=== PATIENT | female | born 2000 | race African-American/Black ===

== ENCOUNTER 2022-01-28 02:54 | Emergency (ER) | payer OTHER, SELFPAY ==
[2022-01-28] VITALS (71 sets, daily range): BP systolic 86–128; BP diastolic 52–83; PULSE 74–123; RESP 13–25; TEMP 36.9; O2SAT 99–100
--- NOTE | 2022-01-28 03:06 | ECG_ITS ---
Measurements Intervals [place] Rate: 93 P: 62 WV: 129 QRS: 71 QRSD: 78 T: 50 QT: 346 QTc: 432 Interpretive Statements SINUS RHYTHM NORMAL ECG NO PREVIOUS ECG AVAILABLE FOR COMPARISON Electronically Signed On 01-28-2022 14:27:36 [employer] by Milton Mendoza M.D.
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
--- NOTE | 2022-01-28 03:24 | PC.NURSE ---
Patient states i think that was it, that sounds familiar when asked if the medication was hydroxyzine. Request sent to patients pharmacy to obtain current prescription medication list.
--- NOTE | 2022-01-28 03:27 | PC.NURSE ---
Contacted poison control at this time, spoke with MANJU Hennessy. Minoo stated the patient is most likely sub-toxic and are past the peak effects at this time. She states that the drowsiness, tachycardia, dry mouth and nausea are to be expected with the vodka adding to the effects. Minoo states to monitor and to r/o alcohol, drug screen, tylenol and salicylates abnormalities. She states she will fax over information and call back later for update. Minoo states that if labs are normal, patient could be medically cleared by them.
--- NOTE | 2022-01-28 03:36 | PC.NURSE ---
Patient did attempt to provide urine sample, unsuccessful at this time. Will attempt again in a few minutes. Patients mother arrives at bedside.
[2022-01-28 03:39] LABS: Basophils Percent Auto 0.3 % (0.2-1.2); Eosinophils Absolute Auto 0.1 K/mm3 (0-0.3); Eosinophils Percent Auto 1.4 % (0-4.4); Hematocrit 37.4 % (37.0-47.0); Hemoglobin 12.6 g/dL (12.0-15.0); Immature Granulocyte Absolute 0.02 K/mm3 (0.00-0.031); Immature Granulocyte Percent A 0.3 % (0-0.5); Lymphocytes Percent Auto 49.4 % (18.3-44.2); Mean Corpuscular HGB Conc 33.7 g/dl (32-36); Mean Corpuscular Hemoglobin 29.1 pg (26-34); Mean Corpuscular Volume 86.4 fl (80-100); Mean Platelet Volume 10.6 fl (7.4-10.4); Monocytes Absolute Auto 0.5 K/mm3 (0.1-0.6); Monocytes Percent Auto 8.1 % (2.6-8.5); Neutrophils Absolute Auto 2.5 K/mm3 (1.3-6.7); Neutrophils Percent Auto 40.5 % (45.5-73.1); Platelet Count Result 168 k/mm3 (150-375); Red Blood Count 4.33 M/mm3 (4.2-5.4); Red Cell Distribution Width 13.2 % (11.5-14.5); White Blood Count 6.3 K/mm3 (4.5-10.0)
--- NOTE | 2022-01-28 03:39 | PC.NURSE ---
Patient ambulates to the bathroom with a steady gait to attempt to provide a urine sample. Attempt was successful. Urine sent to lab.
[2022-01-28 03:42] LABS: Alanine Aminotransferase 13 U/L (4-35); Albumin Level 4.2 g/dL (3.5-5.1); Alkaline Phosphatase 65 U/L (38-126); Anion Gap 9 mmol/L (8-16); Aspartate Amino Transferase 34 U/L (14-36); Bilirubin,Total 0.3 mg/dL (0.2-1.3); Blood Urea Nitrogen 8 mg/dL (7-17); Calcium 8.6 mg/dL (8.4-10.2); Carbon Dioxide 24 mmol/L (22-30); Chloride 108 mmol/L (98-107); Estimated CRCL calculation 69 ml/min; Estimated Glomerular Filt Rate > 60; Glucose 95 mg/dL (65-110); Potassium 3.5 mmol/L (3.4-5.0); Sodium 141 mmol/L (137-145)
[2022-01-28 03:44] LABS: Acetaminophen < 10 ug/mL (10-30); Ethanol < 10 mg/dL (<10); Salicylate < 1.0 mg/dL (2-20)
[2022-01-28 04:00] LABS: Add Urine Microscopic? YES; Appearance Urine Cloudy (Clear); Bacteria Urine Trace /hpf; Bilirubin Urine Negative (Negative); Blood Urine Negative (Negative); Color Urine Yellow (Yellow); Glucose Urine UA Negative (Negative); Ketones Urine Negative (Negative); Leukocyte Esterase Ur 2+ LEU/UL (Negative); Mucus Urine Moderate /lpf; Nitrate Urine Negative (Negative); Protein Urine Negative (Negative); Specific Grav Ur 1.015 (1.001-1.035); Squamous Epithelial Cell Urine Few /hpf (Few); WBC Urine 21-30 /hpf
[2022-01-28 04:09] LABS: SARS-CoV-2 RNA PCR Negative
[2022-01-28 04:27] LABS: Amphetamine Screen Urine Negative (Negative); Barbiturate Screen Urine Negative (Negative); Benzodiazepines Screen Urine Negative (Negative); Cannabinoid Screen Urine Negative (Negative); Cocaine Screen Urine Negative (Negative); Methadone Screen Urine Negative (Negative); Opiate Screen Urine Negative (Negative); Phencyclidine Screen Urine Negative (Negative)
--- NOTE | 2022-01-28 04:40 | PC.NURSE ---
pt is medically clear at this time. may call crisis to evaluate patient.
--- NOTE | 2022-01-28 05:03 | PC.NURSE ---
Patient mother given update on plan of care. Mother remains at bedside. Sitter at bedside. Patient resting on stretcher with eyes closed, VSS, no acute distress noted. Lights dimmed and blanket given.
--- NOTE | 2022-01-28 05:35 | PC.NURSE ---
Minoo, from Poison control calls to get update on patient and to get lab results. Minoo states patient is medically cleared on their end and that symptoms are resolving and that the patient case is being closed.
--- NOTE | 2022-01-28 05:41 | ED.OVERDOSE ---
HPI - Overdose General Chief Complaint: Overdose <Mac Story MD - Last Filed: 01/28/22 06:55> Stated Complaint: intentional overdose on anxiety med <Mac Story MD - Last Filed: 01/28/22 06:55> Time Seen by Provider: 01/28/22 03:00 <Mac Story MD - Last Filed: 01/28/22 06:55> History of Present Illness HPI Narrative: Patient is a 21-year-old female who presents ER with suicidal ideation with attempt. Patient reports she took 14 tablets of hydroxyzine at around 7 PM. She did this in an attempt to end her own life. Reports she has history of PTSD. She recently traveled to [place] to try to escape stress but did not work and she was overwhelmed tonight. She denies history of previous hospitalization for SI or intent. No additional coingestants. No HI. <Mac Story MD - Last Filed: 01/28/22 06:55> Related Data Home Medications: Home Medications Medication Instructions Recorded Confirmed hydroxyzine pamoate 01/28/22 <Mac Story MD - Last Filed: 01/28/22 06:55> Allergies/Adverse Reactions: Allergies Allergy/AdvReac Type Severity Reaction Status Date / Time No Known Allergies Allergy Verified 01/28/22 03:11 <Mac Story MD - Last Filed: 01/28/22 06:55> Review of Systems Review of Systems: All systems reviewed & are unremarkable except as noted in HPI and below <Mac Story MD - Last Filed: 01/28/22 06:55> Constitutional: Constitutional: Denies chills, Denies fever(s) and Denies weakness <Mac Story MD - Last Filed: 01/28/22 06:55> ENT: Denies nasal congestion and Denies sore throat <Mac Story MD - Last Filed: 01/28/22 06:55> Cardiovascular: Cardiovascular: Denies chest pain, Denies rapid heart rate and Denies radiating jaw, neck or arm pain <Mac Story MD - Last Filed: 01/28/22 06:55> Respiratory: Respiratory: Denies cough and Denies dyspnea <Mac Story MD - Last Filed: 01/28/22 06:55> Gastrointestinal: Gastrointestinal: Denies abdominal pain, Denies diarrhea, Denies nausea and Denies vomiting <Mac Story MD - Last Filed: 01/28/22 06:55> Genitourinary: Genitourinary: Denies hematuria, Denies nocturia and Denies dysuria <Mac Story MD - Last Filed: 01/28/22 06:55> Psychiatric: Psychiatric: Denies anxiety, Reports depression, Denies homicidal ideation and Reports suicidal ideation <Mac Story MD - Last Filed: 01/28/22 06:55> PMFSH Past Medical History Medical History: Medical History (Updated 01/28/22 @ 10:07 by Sylvia Laureano MD) Depression PTSD (post-traumatic stress disorder) <Mac Story MD - Last Filed: 01/28/22 06:55> Surgical History Surgical History: Surgical History (Updated 01/28/22 @ 05:43 by Mac Story MD) History of tonsillectomy <Mac Story MD - Last Filed: 01/28/22 06:55> Social History Social History: Social History Substance use type: does not use <Mac Story MD - Last Filed: 01/28/22 06:55> Exam Narrative: GENERAL: Fatigued-appearing, well-nourished, and in no acute distress. HEAD: Normocephalic, atraumatic. EYES: PERRLA and EOMI. ENT: Mucous membranes moist. CHEST: Clear to auscultation. No respiratory distress. HEART: Regular rate and rhythm. Normal peripheral pulses. ABDOMEN: Soft, nontender, nondistended. EXTREMITIES: Normal range of motion. No edema. SKIN: Warm, dry, no rash. NEURO: Alert and oriented x3. PSYCH: Flat affect, reports SI but no HI. <Mac Story MD - Last Filed: 01/28/22 06:55> Course Reevaluation(s) Reevaluation #1: Poison control contacted. Patient is cleared the observation. He is medically cleared to be seen by crisis team. <Mac Story MD - Last Filed: 01/28/22 06:55> PAtient has been cooperative in ER. She has been accepted to [facility] in [place] for psychiatric evaluation. She is awaitin
--- NOTE | 2022-01-28 06:53 | PC.NURSE ---
Per Jabier with Crisis, he is faxing patients chart to [facility] and [facility].
--- NOTE | 2022-01-28 08:00 | PC.NURSE ---
pt accepted to [facility] papers being faxed.
--- NOTE | 2022-01-28 10:00 | PC.NURSE ---
henriquez approved transport at 1400. pt accepted to dr verdin. bed #[id number]
== END 2022-01-28 15:18 ==
PROVIDERS: Emergency Medicine; Emergency Provider General Practice
DX: T43.592A Poisoning by other antipsychotics and neuroleptics, intentional self-harm, initial encounter (principal); F43.10 Post-traumatic stress disorder, unspecified; F32.A Depression, unspecified; Z20.822 Contact with and (suspected) exposure to COVID-19
CPT/HCPCS: 36415; 80053; 80307; 81001; 81025; 84443; 85025; 87077; 87086; 87186; 93005; 99284; 99285; C9803; U0003; U0005